=== PATIENT | female | born 1970 | race African-American/Black ===

== ENCOUNTER 2021-02-04 14:52 | Emergency (ER) | payer OTHER ==
[2021-02-04 14:59] VITALS: BP 168/91; PULSE 72; TEMP 99.7; BMI 30.9
[2021-02-04] MEDS ORDERED: KETOROLAC TROMETHAMINE 15 MG/ML VIAL IVPUSH ONE (15:46)
[2021-02-04] MEDS ORDERED: KETOROLAC TROMETHAMINE 15 MG/ML VIAL ONE (15:48)
[2021-02-04 15:59] LABS: BASO % 0.7 % (0-2.0); EOS % 1.1 % (0-4.5); HEMATOCRIT 36.3 % (32.4-45.2); HEMOGLOBIN 12.7 GM/dL (10.7-15.3); LYMPH % 41.1 % (8-40); MCH 30.6 pg (25.7-33.7); MEAN CELL VOLUME 87.2 fl (80-96); MEAN PLT VOLUME 9.2 fl (7.5-11.1); MONO % 6.3 % (3.8-10.2); NEUT % 50.8 % (42.8-82.8); PLATELET COUNT 347 K/MM3 (134-434); RBC 4.16 M/mm3 (3.60-5.2); RDW 13.1 % (11.6-15.6); WHITE BLOOD COUNT 7.5 K/mm3 (4.0-10.0)
[2021-02-04 16:15] LABS: ALBUMIN 4.3 g/dl (3.4-5.0); BLOOD UREA NITROGEN 8.5 mg/dL (7-18); CALCIUM 9.9 mg/dL (8.5-10.1)
[2021-02-04 16:20] LABS: BILIRUBIN,TOTAL 0.5 mg/dL (0.2-1)
== END 2021-02-04 18:30 | disposition home or self-care (01) ==
LOC: JER 14:52 → JERFT 14:52
PROC: 3E033GC Introduction of Other Therapeutic Substance into Peripheral Vein, Percutaneous Approach (ICD-10-PCS; principal; 2021-02-04)
DX: K05.6 Periodontal disease, unspecified (principal); R21 Rash and other nonspecific skin eruption
CPT/HCPCS: 36415; 70487-TC; 80053; 84703; 85025; 99285-25; Q9967

== ENCOUNTER 2024-04-17 02:22 | Emergency (ER) | payer OTHER ==
[2024-04-17] MEDS ORDERED: ONDANSETRON 4 MG/2 ML VIAL ONE (02:44)
[2024-04-17] MEDS: LACTATED RINGERS SOLUTION 1000 ML INFUS.BAG IV ONE ×2 (02:56→05:14)
[2024-04-17] MEDS: ONDANSETRON 4 MG/2 ML VIAL IVPUSH ONE (02:56)
[2024-04-17 03:12] VITALS: BMI 52.4
[2024-04-17 03:28] LABS: VENOUS BASE EXCESS -0.9 mmol/L (-2-2); VENOUS O2 SATURATION 66.2 % (70-80); VENOUS PCO2 44.9 mmHg (38-52); VENOUS PH 7.36 (7.310-7.410)
[2024-04-17 03:32] LABS: BASO % 0.7 % (0-2.0); EOS % 1.3 % (0-4.5); HEMATOCRIT 34.8 % (32.4-45.2); HEMOGLOBIN 12.2 GM/dL (10.7-15.3); LYMPH % 42.8 % (8-40); MCH 30.3 pg (25.7-33.7); MCHC 35.2 g/dl (32.0-36.0); MEAN CELL VOLUME 86.1 fl (80-96); MEAN PLT VOLUME 9.3 fl (7.5-11.1); MONO % 8.6 % (3.8-10.2); NEUT % 46.6 % (42.8-82.8); PLATELET COUNT 255 10^3/uL (134-434); RBC 4.04 M/mm3 (3.60-5.2); RDW 13.4 % (11.6-15.6); WHITE BLOOD COUNT 8.2 K/mm3 (4.0-10.0)
[2024-04-17 03:39] LABS: INR 1.07 (0.83-1.09); PROTHROMBIN TIME (PATIENT) 12.1 SEC (9.7-13.0)
[2024-04-17 03:49] LABS: CHLORIDE 104 mmol/L (98-107); POTASSIUM 3.3 mmol/L (3.5-5.1); SODIUM 141 mmol/L (136-145)
[2024-04-17 03:51] LABS: MAGNESIUM 1.9 mg/dL (1.8-2.4)
[2024-04-17 03:52] LABS: ALBUMIN 4.2 g/dl (3.4-5.0); ANION GAP 13 mmol/L (4-13); BLOOD UREA NITROGEN 16.3 mg/dL (7-18); CALCIUM 9.6 mg/dL (8.5-10.1); CO2 24 mmol/L (21-32)
[2024-04-17 03:54] LABS: SGOT/AST 32 U/L (15-37); SGPT/ALT 17 U/L (13-61)
[2024-04-17 03:55] LABS: CREATININE 0.9 mg/dL (0.55-1.3)
[2024-04-17 03:56] LABS: PHOSPHOROUS 4.2 mg/dL (2.5-4.9); TOT PROT 7.5 g/dl (6.4-8.2)
[2024-04-17 03:57] LABS: BILIRUBIN,TOTAL 0.8 mg/dL (0.2-1)
[2024-04-17 03:59] LABS: ALK PHOS 120 U/L (45-117)
[2024-04-17 04:05] LABS: LACTIC ACID 3.6 mmol/L (0.4-2.0)
[2024-04-17 04:17] LABS: GLUCOSE,RANDOM 45 mg/dL (74-106)
[2024-04-17] MEDS ORDERED: DEXTROSE 50%-WATER 25 GM/50 ML DISP.SYRIN ONE (04:25)
[2024-04-17] MEDS: DEXTROSE 50%-WATER - 25 GM/50 ML VIAL IVPUSH ONE (04:35)
[2024-04-17] MEDS ORDERED: MAG HYDROX/AL HYDROX/SIMETH 30 ML UNIT-DOSE CUP ONE (04:38)
[2024-04-17] MEDS ORDERED: POTASSIUM CHLORIDE TABS 20 MEQ TABLET.ER (FP) PO ONE (04:38)
[2024-04-17] MEDS: MAG HYDROX/AL HYDROX/SIMETH 30 ML UNIT-DOSE CUP PO ONE (04:45)
[2024-04-17] MEDS: POTASSIUM CHLORIDE TABS 20 MEQ TABLET.ER (FP) PO ONE (04:45)
[2024-04-17 04:49] LABS: LACTIC ACID 3.6 mmol/L (0.4-2.0)
[2024-04-17] MEDS ORDERED: ACETAMINOPHEN INJECTION 100 ML IVPB ONE (05:10)
[2024-04-17] MEDS: NALOXONE (NYS OPIOID OVERDOSE PROGRAM) 4 MG/0.1 ML SPRAY NS ONE (05:14)
[2024-04-17] MEDS: ACETAMINOPHEN 1000 MG/100 ML BAG IVPB ONE (05:15)
[2024-04-17 06:57] LABS: URINE BARBITURATES NEGATIVE (NEGATIVE)
[2024-04-17 06:58] LABS: METHADONE, UR NEGATIVE (NEGATIVE); OPIATES, URI NEGATIVE (NEGATIVE); PHENCYCLIDINE,URINE NEGATIVE (NEGATIVE); URINE BENZODIAZEPINES NEGATIVE (NEGATIVE)
[2024-04-17 07:02] LABS: COCAINE, UR NEGATIVE (NEGATIVE); URINE AMPHETAMINES POSITIVE (NEGATIVE)
[2024-04-17 07:02] LABS: EPI CELLS 5 /uL (0-25.1); HYALINE CASTS 0 /uL (0-3.1); PH,URINE 5.5 (5.0-8.0); URINE APPEARANCE CLEAR; URINE BACTERIA 91 /uL (0-1359); URINE BILIRUBIN NEGATIVE (NEGATIVE); URINE COLOR YELLOW; URINE GLUCOSE (UA) 1+ (NEGATIVE); URINE KETONE 2+ (NEGATIVE); URINE LEUK ESTERASE TRACE (NEGATIVE); URINE NITRITE NEGATIVE (NEGATIVE); URINE PROTEIN NEGATIVE (NEGATIVE); URINE RBC 15 /uL (0-23.9); URINE UROBILINOGEN 0.2 mg/dL (0.2-1.0); URINE WBC 33 /uL (0-25.8)
[2024-04-17 08:22] VITALS: BP 113/63; PULSE 64; RESP 18; TEMP 98.1
== END 2024-04-17 08:40 | disposition home or self-care (01) ==
LOC: JER 02:22
PROC: 3E033NZ Introduction of Analgesics, Hypnotics, Sedatives into Peripheral Vein, Percutaneous Approach (ICD-10-PCS; principal; 2024-04-17)
PROC: 3E033GC Introduction of Other Therapeutic Substance into Peripheral Vein, Percutaneous Approach (ICD-10-PCS; 2024-04-17)
PROC: 3E0337Z Introduction of Electrolytic and Water Balance Substance into Peripheral Vein, Percutaneous Approach (ICD-10-PCS; 2024-04-17)
DX: T40.2X1A Poisoning by other opioids, accidental (unintentional), initial encounter (principal); G40.89 Other seizures; Z20.822 Contact with and (suspected) exposure to COVID-19
CPT/HCPCS: 0241U-QW; 36415; 70450-TC; 71045-TC-FY; 80053; 80307; 81003; 82550; 82553; 82803; 82962; 83605; 83690; 83735; 84100; 84484; 85025; 85610; 86850; 86900; 86901; 87086; 93005; 93010; 99285-25; J0131